=== PATIENT | male | born 1940 | race Caucasian/White ===

== ENCOUNTER 2022-02-04 04:26 | Observation (INO) | payer MEDICARE, OTHER ==
[2022-02-04] MEDS ORDERED: Dicyclomine 20 MG/2 ML VIAL ONE (04:49)
[2022-02-04 04:53] LABS: #Basophils 0.1 10x3/uL (0.0-0.2); #Eosinphils 0.2 10x3/uL (0.0-0.5); #Monocytes 0.8 10x3/uL (0.0-1.1); #Neutrophils 9.8 10x3/uL (1.5-8.4); %Basophils 0.7 % (0.0-2.0); %Eosinophils 1.1 % (0.0-6.0); %Lymphocytes 20.9 % (18.0-47.0); %Monocytes 6.1 % (0.0-10.0); %Neutrophils 70.9 % (40.0-75.0); Hemoglobin 13.8 g/dL (13.5-17.5); Mean Corpuscular HGB CONC 34.2 g/dL (32.0-36.0); Mean Corpuscular Hemoglobin 33.4 pg (27.0-33.0); Mean Corpuscular Volume 97.6 fl (81.2-95.1); Mean Platelet Volume 9.8 fl (7.4-10.4); Platelet Count 377 10x3/uL (150-450); RBC Distribution Width 12.8 % (11.5-14.5); Red Blood Cell (RBC) Count 4.13 10x6/uL (4.32-5.72); White Blood Cell (WBC) Count 13.8 10x3/uL (3.5-10.5)
[2022-02-04 05:17] LABS: ALT (SGPT) 18 U/L (8-55); AST (SGOT) 19 U/L (5-34); Albumin 4.5 g/dL (3.4-4.8); Alkaline Phosphatase 72 U/L (40-110); Anion Gap 15 mmol/L (10-20); BUN (Urea Nitrogen) 15 mg/dL (8.4-25.7); Bilirubin, Total 0.6 mg/dL (0.2-1.2); Calc. Creatinine Clearance 0 mL/min (70-130); Calcium 9.9 mg/dL (7.8-10.44); Carbon Dioxide 29 mmol/L (23-31); Chloride 99 mmol/L (98-107); Estimated GFR 67; Globulin 2.7 g/dL (2.4-3.5); Glucose 151 mg/dL (83-110); Lipase 39 U/L (8-78); Potassium 4.8 mmol/L (3.5-5.1); Protein, Total 7.2 g/dL (5.8-8.1); Sodium 138 mmol/L (136-145)
[2022-02-04] MEDS ORDERED: Ketorolac Tromethamine 30 MG/ML VIAL ONE (05:40)
[2022-02-04] MEDS ORDERED: Fentanyl 100 MCG/2 ML VIAL ONE ×3 (05:44→08:24)
[2022-02-04] MEDS ORDERED: Ondansetron PF 4 MG/2 ML Vial ONE (06:51)
[2022-02-04] MEDS ORDERED: Lidocaine Viscous Sol 2% 15 ml UD Cup ONE (07:00)
[2022-02-04 07:28] LABS: SARS-CoV-2 NAA Rapid Test Not Detected (NotDetected)
[2022-02-04] MEDS ORDERED: Ondansetron PF 4 MG/2 ML Vial IVP PRN (07:35)
[2022-02-04] MEDS ORDERED: Acetaminophen 650 MG Suppository PR PRN (07:35)
[2022-02-04] MEDS ORDERED: Morphine 2 MG/ML VIAL SLOW IVP PRN (07:38)
[2022-02-04] MEDS ORDERED: Morphine 4 MG/ML VIAL SLOW IVP PRN (07:39)
[2022-02-04] MEDS: Sodium Chloride 0.9% 1,000 ML IV SCH (09:11)
[2022-02-04] MEDS: Fentanyl 100 MCG/2 ML VIAL SLOW IVP PRN ×2 (10:10→13:14)
[2022-02-04] MEDS ORDERED: Promethazine HCl 12.5 MG, Admixture Fee 1 EACH in Sodium Chloride 0.9% 50 ML IVPB PRN (15:21)
[2022-02-04] MEDS ORDERED: Lorazepam 2 MG/ML VIAL SLOW IVP SCH (21:00)
[2022-02-05] MEDS: Fentanyl 100 MCG/2 ML VIAL SLOW IVP PRN (01:15)
[2022-02-05 03:30] LABS: #Basophils 0.1 10x3/uL (0.0-0.2); #Eosinphils 0.1 10x3/uL (0.0-0.5); #Neutrophils 10.9 10x3/uL (1.5-8.4); %Basophils 0.3 % (0.0-2.0); %Eosinophils 0.5 % (0.0-6.0); %Lymphocytes 20.7 % (18.0-47.0); %Monocytes 6.7 % (0.0-10.0); %Neutrophils 71.5 % (40.0-75.0); Hemoglobin 13.3 g/dL (13.5-17.5); Mean Corpuscular HGB CONC 33.8 g/dL (32.0-36.0); Mean Corpuscular Hemoglobin 33.2 pg (27.0-33.0); Mean Corpuscular Volume 98.3 fl (81.2-95.1); Mean Platelet Volume 9.9 fl (7.4-10.4); Platelet Count 336 10x3/uL (150-450); RBC Distribution Width 13.1 % (11.5-14.5); Red Blood Cell (RBC) Count 4.01 10x6/uL (4.32-5.72); White Blood Cell (WBC) Count 15.3 10x3/uL (3.5-10.5)
[2022-02-05 03:52] LABS: ALT (SGPT) 12 U/L (8-55); AST (SGOT) 18 U/L (5-34); Albumin 3.9 g/dL (3.4-4.8); Alkaline Phosphatase 62 U/L (40-110); Anion Gap 11 mmol/L (10-20); BUN (Urea Nitrogen) 15 mg/dL (8.4-25.7); Bilirubin, Total 0.9 mg/dL (0.2-1.2); Calc. Creatinine Clearance 66 mL/min (70-130); Calcium 8.8 mg/dL (7.8-10.44); Carbon Dioxide 27 mmol/L (23-31); Chloride 104 mmol/L (98-107); Estimated GFR 77; Globulin 2.4 g/dL (2.4-3.5); Glucose 120 mg/dL (83-110); Potassium 4.2 mmol/L (3.5-5.1); Protein, Total 6.3 g/dL (5.8-8.1); Sodium 138 mmol/L (136-145)
[2022-02-05] MEDS: Sodium Chloride 0.9% 1,000 ML IV SCH (05:02)
[2022-02-05 07:00] VITALS: BMI 26.1
[2022-02-05 08:09] VITALS: TEMP 97.3
[2022-02-05 12:17] VITALS: BP 148/76
== END 2022-02-05 15:45 | disposition home or self-care (01) ==
LOC: CSHERS 04:26 → CSHICU 08:42 → INTOOBSV 08:42
PROVIDERS: ADMIT Family Medicine; ATTEND Student in an Organized Health Care Education/Training Program
DX: R10.32 Left lower quadrant pain (principal); D72.829 Elevated white blood cell count, unspecified; G35 Multiple sclerosis; N40.0 Benign prostatic hyperplasia without lower urinary tract symptoms; R11.2 Nausea with vomiting, unspecified; Z87.19 Personal history of other diseases of the digestive system; Z20.822 Contact with and (suspected) exposure to COVID-19; Z86.718 Personal history of other venous thrombosis and embolism; Z86.73 Personal history of transient ischemic attack (TIA), and cerebral infarction without residual deficits; Z79.899 Other long term (current) drug therapy; Z88.5 Allergy status to narcotic agent; Z88.8 Allergy status to other drugs, medicaments and biological substances; Z90.49 Acquired absence of other specified parts of digestive tract; Z98.890 Other specified postprocedural states
CPT/HCPCS: 74176; 80053 ×2; 83690; 85025 ×2; 94760 ×2; 96372; 96374; 96375 ×2; 96376 ×3; 99285; G0378 ×3; U0002; 36415; J1885; J2060; J2405; J2550; J3010; J7050

== ENCOUNTER 2022-06-09 10:51 | Emergency (ER) | payer MEDICARE, OTHER ==
[2022-06-09] MEDS ORDERED: Fentanyl 100 MCG/2 ML VIAL ONE (11:39)
[2022-06-09 11:49] LABS: Bilirubin Neg (Negative); Blood, Urine Negative (Negative); Clarity Clear (Clear); Glucose, Urine (Dipstick) Normal (Negative); Ketone, Urine Negative (Negative); Leukocyte 25 (Negative); Nitrite Negative (Negative); Protein, Urine (Dipstick) Negative (Neg-Trace); Specific Gravity, Urine 1.005 (1.005-1.030); Urobilinogen Normal mg/dL (Less than 2)
[2022-06-09 11:54] LABS: #Eosinphils 0.1 10x3/uL (0.0-0.5); #Monocytes 0.6 10x3/uL (0.0-1.1); #Neutrophils 6.3 10x3/uL (1.5-8.4); %Basophils 0.4 % (0.0-2.0); %Eosinophils 0.8 % (0.0-6.0); %Lymphocytes 31.3 % (18.0-47.0); %Monocytes 5.7 % (0.0-10.0); %Neutrophils 61.5 % (40.0-75.0); Hemoglobin 13.1 g/dL (13.5-17.5); Mean Corpuscular HGB CONC 34.4 g/dL (32.0-36.0); Mean Corpuscular Hemoglobin 33.1 pg (27.0-33.0); Mean Corpuscular Volume 96.2 fl (81.2-95.1); Mean Platelet Volume 9.9 fl (7.4-10.4); Platelet Count 277 10x3/uL (150-450); RBC Distribution Width 12.4 % (11.5-14.5); Red Blood Cell (RBC) Count 3.96 10x6/uL (4.32-5.72); White Blood Cell (WBC) Count 10.3 10x3/uL (3.5-10.5)
[2022-06-09 11:58] LABS: Bacteria/HPF None Seen HPF (None Seen); RBC/HPF 0-3 HPF (0-3); Squamous Epithelial None Seen HPF (0-3); WBC/HPF 0-3 HPF (0-3)
[2022-06-09 12:12] LABS: ALT (SGPT) 17 U/L (8-55); AST (SGOT) 21 U/L (5-34); Albumin 4.5 g/dL (3.4-4.8); Alkaline Phosphatase 72 U/L (40-110); Anion Gap 16 mmol/L (10-20); BUN (Urea Nitrogen) 11 mg/dL (8.4-25.7); Bilirubin, Total 0.9 mg/dL (0.2-1.2); Calc. Creatinine Clearance 0 mL/min (70-130); Calcium 9.4 mg/dL (7.8-10.44); Carbon Dioxide 21 mmol/L (23-31); Chloride 101 mmol/L (98-107); Estimated GFR 66; Globulin 2.6 g/dL (2.4-3.5); Glucose 108 mg/dL (83-110); Lipase 19 U/L (8-78); Protein, Total 7.1 g/dL (5.8-8.1); Sodium 133 mmol/L (136-145)
== END 2022-06-09 13:52 | disposition home or self-care (01) ==
LOC: CSHERS 10:51
DX: K59.00 Constipation, unspecified (principal)
CPT/HCPCS: 74176; 80053; 81003; 81015; 83690; 84484; 85025; 93005; 96374; J3010

== ENCOUNTER 2023-02-23 08:25 | Emergency (ER) | payer MEDICARE, OTHER ==
[2023-02-23 09:32] LABS: #Basophils 0.1 10x3/uL (0.0-0.2); #Eosinphils 0.2 10x3/uL (0.0-0.5); #Monocytes 0.6 10x3/uL (0.0-1.1); #Neutrophils 3.4 10x3/uL (1.5-8.4); %Basophils 0.7 % (0.0-2.0); %Eosinophils 3.1 % (0.0-6.0); %Lymphocytes 42.6 % (18.0-47.0); %Monocytes 7.5 % (0.0-10.0); Hematocrit 38.8 % (38.8-50.0); Hemoglobin 13.1 g/dL (13.5-17.5); Mean Corpuscular HGB CONC 33.8 g/dL (32.0-36.0); Mean Corpuscular Hemoglobin 34.2 pg (27.0-33.0); Mean Corpuscular Volume 101.3 fl (81.2-95.1); Platelet Count 269 10x3/uL (150-450); RBC Distribution Width 12.8 % (11.5-14.5); Red Blood Cell (RBC) Count 3.83 10x6/uL (4.32-5.72); White Blood Cell (WBC) Count 7.3 10x3/uL (3.5-10.5)
[2023-02-23 09:53] LABS: ALT (SGPT) 16 U/L (8-55); AST (SGOT) 18 U/L (5-34); Albumin 4.5 g/dL (3.4-4.8); Alkaline Phosphatase 78 U/L (40-110); Anion Gap 13 mmol/L (10-20); BUN (Urea Nitrogen) 22 mg/dL (8.4-25.7); Bilirubin, Total 0.8 mg/dL (0.2-1.2); Calc. Creatinine Clearance 0 mL/min (70-130); Calcium 9.7 mg/dL (7.8-10.44); Carbon Dioxide 24 mmol/L (23-31); Chloride 107 mmol/L (98-107); Estimated GFR 63; Globulin 2.5 g/dL (2.4-3.5); Glucose 116 mg/dL (83-110); Lipase 19 U/L (8-78); Potassium 4.9 mmol/L (3.5-5.1); Sodium 139 mmol/L (136-145)
[2023-02-23 11:09] LABS: Troponin I Less than 0.010 ng/mL (< 0.028)
[2023-02-23 12:24] LABS: Bilirubin Neg (Negative); Blood, Urine Negative (Negative); Clarity Clear (Clear); Glucose, Urine (Dipstick) Normal (Negative); Ketone, Urine Negative (Negative); Leukocyte Negative (Negative); Nitrite Negative (Negative); Protein, Urine (Dipstick) Negative (Neg-Trace); Specific Gravity, Urine 1.015 (1.005-1.030); Urobilinogen Normal mg/dL (Less than 2)
[2023-02-23] MEDS ORDERED: Ketorolac Tromethamine 30 MG/ML VIAL ONE (12:29)
[2023-02-23 12:55] LABS: Bacteria/HPF None Seen HPF (None Seen); CAUTI Indications for Culture Pelvic or flank pain; RBC/HPF 0-3 HPF (0-3); Squamous Epithelial 0-3 HPF (0-3); WBC/HPF None Seen HPF (0-3)
[2023-02-23 12:57] LABS: Urine Culture Reflex No No
== END 2023-02-23 12:23 | disposition home or self-care (01) ==
LOC: CSHERS 08:25
DX: R19.7 Diarrhea, unspecified (principal); R10.13 Epigastric pain; Z87.891 Personal history of nicotine dependence
CPT/HCPCS: 36415; 36416; 71045; 74176; 80053; 81001; 83690; 84484; 85025; 93005; J1885

== ENCOUNTER 2023-05-11 11:22 | Outpatient (CLI) | payer MEDICARE, OTHER | END 2023-05-11 11:23 | disposition home or self-care (01) | LOC: CSHRAD 11:22 | PROVIDERS: ATTEND Family Medicine | DX: R05.9 Cough, unspecified (principal) | CPT/HCPCS: 71046 ==

== ENCOUNTER 2024-01-27 11:28 | Outpatient (CLI) | payer MEDICARE, OTHER | END 2024-01-27 11:29 | disposition home or self-care (01) | LOC: CSHRAD 11:28 | PROVIDERS: ATTEND Family Medicine | DX: R05.9 Cough, unspecified (principal) | CPT/HCPCS: 71046 ==

== ENCOUNTER 2024-03-07 13:38 | Outpatient (CLI) | payer MEDICARE, OTHER | END 2024-03-07 13:39 | disposition home or self-care (01) | LOC: CSHCT 13:38 | PROVIDERS: ATTEND Internal Medicine | DX: R91.8 Other nonspecific abnormal finding of lung field (principal); R06.09 Other forms of dyspnea; R59.0 Localized enlarged lymph nodes; E04.9 Nontoxic goiter, unspecified | CPT/HCPCS: 71250; 94060; 94726; 94729; 94760 ==

== ENCOUNTER 2024-12-15 09:37 | Emergency (ER) | payer MEDICARE, OTHER ==
[2024-12-15 10:08] LABS: #Basophils 0.04 10x3/uL (0.0-0.2); #Eosinophils 0.12 10x3/uL (0.0-0.5); #Monocytes 0.43 10x3/uL (0.0-1.1); #Neutrophils 3.97 10x3/uL (1.5-8.4); %Basophils 0.5 % (0.0-2.0); %Eosinophils 1.6 % (0.0-6.0); %Lymphocytes 39.7 % (18.0-47.0); %Monocytes 5.7 % (0.0-10.0); %Neutrophils 52.2 % (40.0-75.0); Hematocrit 38.0 % (38.8-50.0); Hemoglobin 12.6 g/dL (13.5-17.5); Mean Corpuscular Hemoglobin 32.3 pg (27.0-33.0); Mean Corpuscular Volume 97.4 fL (81.2-95.1); Platelet Count 295 10x3/uL (150-450); Red Blood Cell (RBC) Count 3.90 10x6/uL (4.32-5.72); White Blood Cell (WBC) Count 7.60 10x3/uL (3.5-10.5)
[2024-12-15 10:26] LABS: ALT (SGPT) 15 U/L (Less than 45); AST (SGOT) 20 U/L (11-34); Albumin 4.5 g/dL (3.1-4.5); Alkaline Phosphatase 70 U/L (40-110); Anion Gap 17 mmol/L (10-20); BUN (Urea Nitrogen) 18 mg/dL (8.4-25.7); Bilirubin, Total 1.0 mg/dL (0.3-1.2); Calc. Creatinine Clearance 0 mL/min (70-130); Calcium 9.5 mg/dL (7.8-10.44); Carbon Dioxide 21 mmol/L (23-31); Chloride 99 mmol/L (98-107); Globulin 2.6 g/dL (2.4-3.5); Glucose 126 mg/dL (83-110); Potassium 5.2 mmol/L (3.5-5.1); Sodium 132 mmol/L (136-145)
[2024-12-15 10:28] LABS: Troponin I Less than 0.010 ng/mL (< 0.028)
[2024-12-15] MEDS ORDERED: Aspirin Chewable 81 MG TAB ONE (12:19)
[2024-12-15] MEDS ORDERED: Melatonin 3 MG TAB PO PRN (12:21)
[2024-12-15] MEDS ORDERED: Acetaminophen 325 MG TAB PO PRN (12:21)
[2024-12-15] MEDS ORDERED: Senokot S 8.6-50 MG TAB PO PRN (12:21)
[2024-12-15] MEDS ORDERED: Famotidine 20 MG TAB PO SCH (21:00)
[2024-12-16] MEDS ORDERED: Enoxaparin 40 MG (0.4 mL) SYRINGE SC SCH (09:00)
[2024-12-16] MEDS ORDERED: Aspirin 81 mg Enteric Coated Tablet PO SCH (09:00)
== END 2024-12-15 12:33 | disposition home or self-care (01) ==
LOC: CSHERS 09:37
DX: R42 Dizziness and giddiness (principal); R07.89 Other chest pain; R29.700 NIHSS score 0; R54 Age-related physical debility; Z55.6 Problems related to health literacy; Z75.3 Unavailability and inaccessibility of health-care facilities; Z86.73 Personal history of transient ischemic attack (TIA), and cerebral infarction without residual deficits; Z87.891 Personal history of nicotine dependence
CPT/HCPCS: 36415; 70450; 71045; 80053; 83880; 84484; 85025; 93005; J7030